=== PATIENT | male | born 1945 | race Caucasian/White ===

== ENCOUNTER 2023-10-11 11:00 | Emergency (ER) | payer OTHER ==
[2023-10-11 11:59] LABS: HEMATOCRIT 39.8 % (35.4-49); HEMOGLOBIN 13.3 G/dL (11.7-16.9); MCH 30.8 pg (25.7-33.7); MCHC 33.3 g/dl (32.0-35.9); MEAN CELL VOLUME 92.3 fl (80-96); MEAN PLT VOLUME 8.4 fl (7.5-11.1); PLATELET COUNT 174.3 10^3/uL (134-434); RBC 4.31 10^6/uL (4.00-5.60); WHITE BLOOD COUNT 7.4 10^3/uL (4.0-10.8)
[2023-10-11 12:02] VITALS: BP 157/89; PULSE 97; RESP 18; TEMP 98.1; BMI 21.1
[2023-10-11 12:18] LABS: INR 0.97 (0.83-1.09); PROTHROMBIN TIME (PATIENT) 11.1 SEC (9.7-13.0)
[2023-10-11 12:26] LABS: ALBUMIN 4.5 g/dl (3.4-5.0); BILIRUBIN,TOTAL 0.6 mg/dl (0.2-1); CALCIUM 10.1 mg/dl (8.5-10.1); CREATININE 0.8 mg/dl (0.6-1.3); POTASSIUM 4.7 mmol/L (3.5-5.1); TOT PROT 7.5 g/dl (6.4-8.2)
[2023-10-11] MEDS ORDERED: FAMOTIDINE 20 MG/50 ML IVPB 20 MG/50 ML MG IVPB ONE (12:43)
[2023-10-11] MEDS ORDERED: MAG HYDROX/AL HYDROX/SIMETH 30 ML UNIT-DOSE CUP ONE (12:43)
[2023-10-11] MEDS: MAG HYDROX/AL HYDROX/SIMETH -MYLANTA- ORAL SUSPENSION PO ONE (12:45)
[2023-10-11] MEDS: FAMOTIDINE 20 MG/50 ML IVPB 20 MG/50 ML MG IVPB ONE (12:47)
== END 2023-10-11 16:40 | disposition home or self-care (01) ==
LOC: FER 11:00
PROC: 3E033GC Introduction of Other Therapeutic Substance into Peripheral Vein, Percutaneous Approach (ICD-10-PCS; principal; 2023-10-11)
DX: K92.1 Melena (principal); R10.13 Epigastric pain; R63.4 Abnormal weight loss
CPT/HCPCS: 36415; 71046-TC-FY; 74177-TC; 80053; 83605; 83690; 84484; 85027; 85610; 85730; 86850; 86900; 86901; 93005; 99285-25; Q9967